=== PATIENT | female | born 1960 | race Caucasian/White ===

== ENCOUNTER 2025-01-21 07:55 | Day surgery (SDC) | payer BC, MEDICARE ==
[2025-01-18 14:37] LABS: Absolute Eosinophils 0.1 K/uL (0-0.5); Absolute Lymphocytes (CBC) 1.4 K/uL (0.7-4.9); Absolute Monocytes 0.5 K/uL (0.1-1.3); Basophils % 0.9 % (0-1.3); Eosinophils % 1.8 % (0-4.4); Hematocrit 41.7 % (36.0-45.0); Lymphocytes % 28.2 % (15.3-44.8); MCH 30.1 pg (27.0-35.0); MCHC 33.6 g/dL (32.0-36.0); MCV 89.6 fL (80-100); MPV 7.6 fL (7.6-11.3); Monocytes % 10.7 % (3.3-12.3); Neutrophils % 58.4 % (41.7-73.7); Nucleated Red Blood Cells % 0.1 % (0-0); Platelets 301 thou/uL (152-406); RBC Red Blood Cell Count 4.66 M/uL (3.86-4.86); Red Cell Distribution Width 12.7 % (12.1-15.2)
[2025-01-18 14:40] LABS: Anion Gap 5.8 mEq/L (5.0-15.0); Potassium 3.8 mEq/L (3.5-5.1)
--- NOTE | 2025-01-20 08:43 | EKG ---
Test Date: 2025-01-18 Test Time: 13:53:21 Underpresser Hand: DESHAWN MEASUREMENT RESULTS: Intervals: Rate: 58 NM: 158 QRSD: 96 QT: 408 QTc: 400 [place]: P: NM: 158 QRS: 60 T: 64 INTERPRETIVE STATEMENTS: Sinus bradycardia Low voltage QRS Borderline ECG No previous ECG available for comparison Electronically Signed On 01-20-25 08:37:37 CDT by Collin Palencia
[2025-01-21] MEDS: Ringers Lactate 1,000 ML IV ONE (07:40)
[2025-01-21] MEDS ORDERED: SCOPOLAMINE HYDROBROMIDE PATCH TD ONE (10:01)
[2025-01-21] MEDS ORDERED: FENTANYL CITR 100 MCG/2 ML ONE (10:22)
[2025-01-21] MEDS ORDERED: propofoL 200 MG/20 ML VIAL IV ONE (10:22)
[2025-01-21] MEDS ORDERED: LIDOCAINE 1% MPF 5 ML VIAL ONE (10:22)
[2025-01-21] MEDS ORDERED: MIDAZOLAM HCL 2 MG/2 ML INJ ONE (10:22)
[2025-01-21] MEDS ORDERED: ONDANSETRON 4 MG/2 ML VIAL ONE (10:22)
[2025-01-21] MEDS: LIDOCAINE HCL/EPINEPHRINE 20 ML MDV ONE (11:10)
[2025-01-21] MEDS: POVIDONE-IODINE 5% EYE DROPS ONE (11:11)
[2025-01-21] MEDS: EPINEPHRINE 1 MG/ML VIAL ONE (12:45)
[2025-01-21] MEDS: BSS OPTHALMIC SOL 15 ML OPTH ONE (12:55)
--- NOTE | 2025-01-21 13:28 | P.OP ---
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 New deep margin permanent only Findings: Procedure basal cell carcinoma with negative peripheral margin on frozen Operative Technique: Was brought to the operating room placed under general anesthesia. The head of bed was rotated approximately 45 degrees for better access to the face. The area around the visible lesion was injected with local anesthetic and the face was prepped and draped with Betadine. A wide local excision was performed around the visible lesion with a gross margin of 3 mm seeing a 15 blade scalpel. Specimen was marked with a suture indicating 12:00 was oriented at the inferior left aspect of the wound. The specimen was sent to pathology for frozen section analysis. The pathologist confirmed sclerosing basal cell carcinoma with positive 12:00 and 6:00 margin. There was also concern for a close or narrow margin on the deep aspect directly under the prior biopsy site. The additional 12:00 and 6:00 margin was excised using scalpel with the true margin marked with ink and sent to pathology for frozen section analysis. Since the deep margin was distant primarily of the loose areolar tissue the deep margin under the biopsy site was excised with a true margin marked with ink and sent for permanent section only due to concerns for accuracy and ease of cutting on a frozen section. The 12:00 margin was negative on the second section. 6:00 margin had very scant questionable areas but was not clearly positive and additional patient was not strongly advised by pathology. The resulting defect was 2.2 x 1.2 cm comprising full-thickness of skin and soft tissue on the nose with the deep aspect of the wound consistent with the septal cartilage and upper lateral cartilage and perichondrium. Additional was made for a local rotational flap. A galbellar flap was elected. An incision was made along the right nasal sidewall and a triangular tip composing skin from the glabella was incised. The flap was elevated using Bovie electrocautery and surrounding tissues were elevated. Was rotated inferiorly to cover the defect of the middle third of the nose. Triangular defect of the glabella was closed linearly allowing improved rotation and advancement of the flap. Flap was secured using 4-0 Vicryl suture and the skin was closed in a running fashion using fast absorbing gut suture. After completion, antibiotic ointment was applied to the suture line and the procedure was concluded. The patient was returned to care of anesthesia for awakening extubation in the operating room which proceeded without difficulty. Vision: The patient will be discharged home later today with local wound care and follow-up with Dr. Ledbetter's office in about 10 days for wound evaluation Complications: None Fluids & blood products: See anesthesia record Transferred to: Recovery Room Condition: Good
[2025-01-21] MEDS: ONDANSETRON 4 MG/2 ML VIAL ONE (13:41)
[2025-01-21 14:24] VITALS: BP 118/57; TEMP 97.7; O2SAT 99
[2025-01-21] MEDS: ACETAMINOPHEN 325 MG TABLET ONE (14:40)
[2025-01-21] MEDS: PROMETHAZINE 25 MG TABLET ONE (15:00)
== END 2025-01-21 15:32 | disposition home or self-care (01) ==
LOC: OR 07:55
PROVIDERS: ATTEND Otolaryngology
PROC: 0HX1XZZ Transfer Face Skin, External Approach (ICD-10-PCS; principal; 2025-01-21 09:45)
DX: C44.311 Basal cell carcinoma of skin of nose (principal)
CPT/HCPCS: 14060; 93005; 85025; 80048; 36415; 88331; 88332; 88305; Q0169; J2704; J2003; J2250; J3010; J0171; J2405 ×2; J7120